=== PATIENT | female | born 1950 | race Caucasian/White ===

== ENCOUNTER 2022-07-04 09:06 | Emergency (ER) | payer OTHER ==
--- OUTSIDE RECORDS SUMMARY | 2022-07-04 09:09 | XMS REPORT | Continuity of Care Document ---
:1950 Author Organization [facility] t Address [address] [place] [address] Care Team Providers Name Role Phone Asked, No Pcp Primary Care Physician Unavailable Kim Dunn Attending Clinician Unavailable Gagandeep Dias MD Attending Clinician Antony Kerr MD Attending Clinician [phone] Payers Payer Name Policy Type Policy Number Effective Date Expiration Date S ource UNIVERSAL C1 [id number] [facility] FIDELITY [facility] MEDICARE NOVITAS MB [id number] 2014 [facility] 00:00:00 [facility] Problems Condition Condition Condition Status Onset Resolution Last Treating Co mments Source Name Details Category Date Date Treatment Clinician Date [id number] Depression Problem Active Co mmon with Spirit anxiety [facility] [id number] Scabies Problem Active Commo n [facility] Allergic Allergic Problem Active Commo n rhinitis rhinitis [facility] Hyperlipid Hyperlipid Problem Active C ommon emia emia [facility] Abnormal Abnormal Problem Active Commo n mammogram mammogram Spir [facility] [id number] Wheezing Problem Active Commo n on Spirit inspiratio - [facility] Hypertensi HTN Problem Active Commo n on (hypertens Spirit ion) [facility] [id number] Acute Problem Active Common bronchitis [facility] , - [facility] unspecifie [facility] Spasm Muscle Problem Active Common spasm of Spirit calf [facility] [id number] Tinea Problem Active Common unguium [facility] [id number] Elevated Problem Active Comm on liver [facility] enzymes [facility] [id number] Renal Problem Active [facility] [id number] Primary Problem Active Commo n osteoarthr [facility] itis - [facility] involving [facility] Allergies, Adverse Reactions, Alerts Allergy Allergy Status Severity Reaction(s) Onset Inactive Treating Comm ents Source Name Type Date Date Clinician 4983 Drug Active Unknown Common allergy [facility] neomycin neomycin Active Unknown Commo n [facility] Penicill Penicill Active Unknown Commo n in in [facility] Social History Social Habit Start Date Stop Date Quantity Comments Source History of Tobacco Common [facility] Use [facility] Sex Assigned At [birth year] [facility] 00:00:00 00:00:00 Smoking Status Start Date Stop Date Source [facility] Former Sm[facility] 2021-07-05 00:00:00 2021-07-05 [facility] Ce nter Never Smoker Common [facility] nter Medications Ordered Filled Start Stop Current Ordering Indication Dosage Frequency Signature Comments Components Source Medication Medication Date Date Medication? Clinician (SIG) Name Name diclofenac 2021- No 75mg Q.5D Take 1 Meth ti (VOLTAREN) 03-04 tablet (75 st 75 MG EC 00:00: 04:59 mg total) Hos lucía tablet 00 :00 by mouth 2 l (two) times a day for 30 days. gabapentin 2021- No 100mg Q.5D Take 1 Met hodi (NEURONTIN) 03-04 10- capsule st 100 mg 00:00: 04:59 (100 mg Hospita capsule 00 :00 total) by l mouth 2 (two) times a day for 30 days. Maxzide Maxzide 2017-06 Yes Na Dunn 1 tablet Common 0-01 in the Spirit 00:00: morning - [facility] Fluoxetine Fluoxetine Yes Na Dunn 1 capsule Common HCl HCl 2-05 in the Spirit 00:00: morning - [facility] 00 [facility] HydrOXYzine HydrOXYzine Yes Na Dunn 1 tablet Common HCl HCl 2-05 as needed Spirit 00:00: - [facility] 00 [facility] hydrOXYzine hydrOXYzine No 1{table TID hydrOXYzin HCl 25 MG HCl 25 MG 2-05 t_as_ne e HCl 25 00:00: eded} MG 00 FLUoxetine FLUoxetine No 1{capsu QD FLUoxetine HCl 20 MG HCl 20 MG 2-05 le_in_t HCl 20 MG 00:00: he_morn 00 ing} hydrOXYzine hydrOXYzine No 1{table TID hydrOXYzin HCl 25 MG HCl 25 MG 2-05 t_as_ne e HCl 25 00:00: eded} MG 00 FLUoxetine FLUoxetine No 1{capsu QD FLUoxetine HCl 20 MG HCl 20 MG 2-05 le_in_t HCl 20 MG 00:00: he_morn 00 ing} Fish Oil Fish Oil No 1{capsu QD Fish Oil 1000 MG 1000 MG le} 1000 MG Niacin 500 Niacin 500 No 1{table QD Niacin 500 MG MG t_with_ MG food} Bumetanide Bumetanide No QD Bumetanide 0.5 0.5 0.5 Centrum Centrum No Centrum Silver - Silver - Silver - Norvasc 5 Norvasc 5 No Norvasc 5 MG MG MG Albuterol Albuterol No 2{puffs QID Albuterol Sulfate 108 Sulfate 108 _as_nee Sulfate (90 Base) (90 Base) ded} 108 (90 MCG/ACT MCG/ACT Base) MCG/ACT FLUoxetine FLUoxetine No 1{capsu QD FLUoxetine HCl 20 HCl 20 le_in_t HCl 20 he_morn ing} Potassium Potassium No Potassium 95 MG 95 MG 95 MG Bumetanide Bumetanide No Bumetanide 0.5 MG 0.5 MG 0.5 MG Claritin 10 Claritin 10 No 1{table QD Claritin MG MG t} 10 MG Aspir-81 81 Aspir-81 81 No 1{table QD Aspir-81 MG MG t} 81 MG amLODIPine amLODIPine No amLODIPine Besylate 5 Besylate 5 Besylate 5 MG MG MG Fish Oil Fish Oil No 1{capsu QD Fish Oil 1000 MG 1000 MG le} 1000 MG Niacin 500 Niacin 500 No 1{table QD Niacin 500 MG MG t_with_ MG food} Bumetanide Bumetanide No QD Bumetanide 0.5 0.5 0.5 Centrum Centrum No Centrum Silver - Silver - Silver - Triamterene Triamterene No QD Triamteren -HCTZ 75-50 -HCTZ 75-50 e-HCTZ MG MG 75-50 MG ZyrTEC ZyrTEC No 1{table QD ZyrTEC Allergy 10 Allergy 10 t} Allergy 10 MG MG MG Probiotic Probiotic No 1{capsu QD Probiotic 250 MG 250 MG le} 250 MG Aspir-81 81 Aspir-81 81 No 1{table QD Aspir-81 MG MG t} 81 MG Norvasc 5 Norvasc 5 No 1{table QD Norvasc 5 MG MG t} MG CoQ-10 100 CoQ-10 100 No 1{capsu QD CoQ-10 100 MG MG le} MG Alive Alive No 1{table QD Alive Multi-Vitam Multi-Vitam t} Multi-Yuly in - in - min - Maxzide Maxzide No 1{table QD Maxzide 75-50 MG 75-50 MG t_in_th 75-50 MG e_morni ng} Curcumin 95 Curcumin 95 No Curcumin 95 Triamterene Triamterene No 1{table QD Triamteren -HCTZ 75-50 -HCTZ 75-50 t_in_th e-HCTZ MG MG e_morni 75-50 MG ng} amLODIPine amLODIPine No 1{table QD amLODIPine Besylate 5 Besylate 5 t} Besylate 5 MG MG MG Vitamin D3 Vitamin D3 No 1{capsu QD Vitamin D3 125 MCG 125 MCG le} 125 MCG (5000 UT) (5000 UT) (5000 UT) Biotin Biotin No 1{table QD Biotin Maximum Maximum t} Maximum 68487 MCG 36341 MCG 09478 MCG Centrum Centrum Yes Na Dunn not Common Silver Silver defined Spirit [facility] Bumetanide Bumetanide Yes Na Dunn as Common directed Spirit [facility] Fish Oil Fish Oil Yes Na Dunn 1 capsule Common Spirit [facility] Fluoxetine Fluoxetine Yes Na Dunn 1 capsule Common HCl HCl in the Spirit morning [facility] Aspir-81 Aspir-81 Yes Na Dunn 1 tablet Common [facility] Norvasc Norvasc Yes Na Dunn 1 tablet Co [facility] Niacin Niacin Yes Na Dunn 1 tablet Comm on with food [facility] Claritin Claritin Yes Na Dunn 1 tablet Common [facility] Potassium Potassium Yes Na Dunn not Co mmon defined [facility] Norvasc Norvasc Yes Na Dunn 1 tablet Co [facility] ZyrTEC ZyrTEC No 1{table QD ZyrTEC Allergy 10 Allergy 10 t} Allergy 10 MG MG MG Probiotic Probiotic No 1{capsu QD Probiotic 250 MG 250 MG le} 250 MG Aspir-81 81 Aspir-81 81 No 1{table QD Aspir-81 MG MG t} 81 MG Norvasc 5 Norvasc 5 No 1{table QD Norvasc 5 MG MG t} MG CoQ-10 100 CoQ-10 100 No 1{capsu QD CoQ-10 100 MG MG le} MG Alive Alive No 1{table QD Alive Multi-Vitam Multi-Vitam t} Multi-Yuly in - in - min - Maxzide Maxzide No 1{table QD Maxzide 75-50 MG 75-50 MG t_in_th 75-50 MG e_morni ng} Curcumin 95 Curcumin 95 No Curcumin 95 Triamterene Triamterene No 1{table QD Triamteren -HCTZ 75-50 -HCTZ 75-50 t_in_th e-HCTZ MG MG e_morni 75-50 MG ng} amLODIPine amLODIPine No 1{table QD amLODIPine Besylate 5 Besylate 5 t} Besylate 5 MG MG MG Vitamin D3 Vitamin D3 No 1{capsu QD Vitamin D3 125 MCG 125 MCG le} 125 MCG (5000 UT) (5000 UT) (5000 UT) Biotin Biotin No 1{table QD Biotin Maximum Maximum t} Maximum 68087 MCG 42201 MCG 02318 MCG Albuterol Albuterol No 2{puffs QID Albuterol Sulfate 108 Sulfate 108 _as_nee Sulfate (90 Base) (90 Base) ded} 108 (90 MCG/ACT MCG/ACT Base) MCG/ACT FLUoxetine FLUoxetine No 1{capsu QD FLUoxetine HCl 20 HCl 20 le_in_t HCl 20 he_morn ing} Potassium Potassium No Potassium 95 MG 95 MG 95 MG Bumetanide Bumetanide No Bumetanide 0.5 MG 0.5 MG 0.5 MG Claritin 10 Claritin 10 No 1{table QD Claritin MG MG t} 10 MG Aspir-81 81 Aspir-81 81 No 1{table QD Aspir-81 MG MG t} 81 MG Maxzide Maxzide No 1{table QD Maxzide 75-50 MG 75-50 MG t_in_th 75-50 MG e_morni ng} Immunizations Ordered Immunization Filled Immunization Date Status Commen ts Source Name Name [facility] 2019-03-15 Completed [facility] 13:56:00 [facility] 2019-03-15 Completed [facility] 13:56:00 [facility] 2019-03-15 Completed [facility] 13:56:00 - [facility] 2019-03-15 Completed [facility] 13:56:00 - [facility] 2019-03-15 Completed [facility] 00:00:00 [facility] Vital Signs Vital Name Observation Time Observation Value Comments Source height 2021-07-05 15:00:00 65.00 [in_i] [facility] weight 2021-07-05 15:00:00 155 [lb_av] [facility] temperature 2021-07-05 15:00:00 97.5 [degF] [facility] bmi 2021-07-05 15:00:00 25.79 kg/m2 [facility] oximetry 2021-07-05 15:00:00 98 % [facility] respiratory rate 2021-07-05 15:00:00 16 /min Comm on [facility] blood pressure 2021-07-05 15:00:00 120 mm[Hg] Common [facility] - systolic [facility] blood pressure 2021-07-05 15:00:00 72 mm[Hg] Common [facility] - diastolic [facility] height 2021-07-05 16:00:00 65.00 [in_i] [facility] weight 2021-07-05 16:00:00 156 [lb_av] [facility] temperature 2021-07-05 16:00:00 97.5 [degF] [facility] bmi 2021-07-05 16:00:00 25.96 kg/m2 [facility] oximetry 2021-07-05 16:00:00 98 % [facility] respiratory rate 2021-07-05 16:00:00 16 /min Comm on [facility] blood pressure 2021-07-05 16:00:00 120 mm[Hg] [facility] systolic [facility] blood pressure 2021-07-05 16:00:00 72 mm[Hg] Common [facility] diastolic [facility] Procedures Procedure Date / Time Performed Performing Clinician [facility] e US VASCULAR SCREENING 2022-07-03 20:51:01 [facility] HEART SCAN PLUS CT HEART SCAN PLUS W 2022-07-03 18:45:51 [facility] PHYSICIAN ORDER XR LUMBAR SPINE 2 OR 3 2022-03-04 15:48:07 Cirilo Antony [facility] Fredrick MRI SPINE EXTERNAL 2022-01-18 16:33:41 [facility] STUDY [facility] Plan of Care Planned Activity Planned Date Details Comments Source Future Scheduled 2022-07-04 Hepatitis C screening [facility] Test 02:27:13 (procedure) [code = [id number]] Future Scheduled 2022-07-04 BREAST CANCER [facility] Test 02:27:13 SCREENING [code = BREAST CANCER SCREENING] Future Scheduled 2022-07-04 COLONOSCOPY SCREENING [facility] Test 02:27:13 [code = COLONOSCOPY SCREENING] Future Scheduled 2022-07-04 SHINGLES VACCINES (1 [facility] Test 02:27:13 of 2) [code = SHINGLES VACCINES (1 of 2)] Future Scheduled 2022-07-04 65+ PNEUMOCOCCAL [facility] Test 02:27:13 VACCINE (1 - PCV) [code = 65+ PNEUMOCOCCAL VACCINE (1 - PCV)] Future Scheduled 2022-07-04 COVID-19 VACCINE (4 - [facility] Test 02:27:13 Booster for Moderna series) [code = COVID-19 VACCINE (4 - Booster for Moderna series)] Encounters Start End Encounter Admission Attending Care Care Encounter Source Date/Time Date/Time Type Type Clinicians Facility Department ID 2021-10-02 Outpatient Dunn, Na [facility] [id number] Common 09:57:01 [facility] 2021-07-10 Outpatient [facility], Na [facility] [id number] 2 Common 12:17:32 [id number] [facility] 2021-07-10 Outpatient [facility], Na [facility] [id number] 2 Common 11:26:31 [id number] [facility] 2021-07-10 Outpatient [facility], Na [facility] [id number] 2 Common 11:22:56 [id number] [facility] 2022-07-03 2022-07-03 [facility], 1.2.840.1 [id number] Methodi 12:25:58 23:59:00 Encounter Gagandeep 75577.1.[address] 3.430.2.7 Hospit a .3.398035 l .8 2022-07-03 2022-07-03 [facility], 1.2.840.1 [id number] Methodi 12:25:40 23:59:00 Encounter Gagandeep 14638.1.[address] 3.430.2.7 Hospit a .3.630046 l .8 2022-07-03 2022-07-03 Travel 1.2.840.1 [id number] [id number] Methodi 00:00:00 00:00:[address] 3.430.2.7 0.2.7.3.698 spita .3.592701 084.8 l .8 2022-07-03 2022-07-03 [facility] [id number] [address] 00:00:00 00:00:00 GAGAN[address] 2022-07-03 2022-07-03 Outpatient LARISSA [facility] [id number] [address] 00:00:00 00:00:00 [address] 2022-06-13 2022-06-13 Transcribe Larissa, 1.2.840.1 [id number] Methodi 00:00:00 00:00:00 Orders Gagandeep 91581.1.[address] 3.430.2.7 Hospit a .3.633447 l .8 2022-03-04 2022-03-04 Hospital Kerr, 1.2.840.1 [id number] Methodi 10:48:40 23:59:00 Encounter Antony 69861.1.1 038 [address] t [facility] 3.430.2.7 [facility]osp [facility] .3.889306 l .8 2022-03-04 2022-03-04 Office Kerr, 1.2.840.1 [id number] Methodi 10:30:00 11:35:13 Visit Antony 90469.1.[address] [facility] 3.430.2.7 [facility]osp [facility] .3.604808 l .8 2022-03-04 2022-03-04 Orders Kerr, 1.2.840.1 [id number] Methodi 00:00:00 00:00:00 Only Antony 94477.1.[address] [facility] 3.430.2.7 [facility]osp [facility] .3.899829 l .8 2022-03-04 2022-03-04 Travel 1.2.840.1 [id number] [id number] Methodi 00:00:00 00:00:[address] 3.430.2.7 0.2.7.3.698 Ho spita .3.296459 084.8 l .8 2022-03-04 2022-03-04 [facility] [id number] [address] 00:00:00 00:00:[address] 2022-03-04 2022-03-04 Outpatient CIRILO, [facility] [id number] [address] 00:00:00 00:00:00 ANTONY [address] 2022-03-04 2022-03-04 Outpatient CIRILO, [facility] [id number] [address] 00:00:00 00:00:00 ANTONY [address] 2022-01-20 2022-01-20 Travel 1.2.840.1 [id number] [id number] Methodi 00:00:00 00:00:[address] 3.430.2.7 0.2.7.3.698 Ho spita .3.517340 084.8 l .8 2021-07-05 2021-07-05 SUB ANNUAL STLMLC STLMLC [id number] Common 00:00:00 00:00:00 MCR [facility] VISIT [facility] 2021-07-05 2021-07-05 OFFICE STLMLC STLMLC [id number] Co mmon 00:00:00 00:00:00 VISIT EST Spir it PT LEVEL 3 [facility] 2021-07-02 2021-07-02 (TEL) STLMLC STLMLC [id number] Co mmon 00:00:00 00:00:00 [facility] 2021-05-15 2021-05-15 (TEL) STLMLC STLMLC [id number] Co mmon 00:00:00 00:00:00 [facility] 2020-06-19 2020-06-19 Outpatient STLMLC STLMLC [id number] Common 00:00:00 00:00:00 [facility] 2020-03-02 2020-03-02 [facility] [id number] Common 14:00:00 14:00:[address] [facility] 2019-11-22 2019-11-22 [facility] [id number] Common 11:00:00 11:00:[address] [facility] 2019-11-03 2019-11-03 [facility] [id number] Common 04:08:00 04:08:[address] [facility] 2019-03-15 2019-03-15 Outpatient [facility] [id number] Common 13:00:00 13:00:[address] [facility] 2018-12-23 2018-12-23 Out[facility] [id number] Common 13:00:00 13:00:[address] [facility] 2018-09-13 2018-09-13 Outpatient [facility] [id number] Common 13:00:00 13:00:[address] [facility] 2018-03-15 2018-03-15 [facility] [id number] Common 14:45:00 14:45:[address] [facility] 2018-02-15 2018-02-15 [facility] [id number] Common 17:32:00 17:32:[address] [facility] 2018-02-03 2018-02-03 Out[facility] [id number] Common 09:29:00 09:29:[address] [facility] 2018-01-22 2018-01-22 Outpatient [facility] [id number] Common 11:04:00 11:04:[address] [facility] Results This patient has no known results.
--- NOTE | 2022-07-04 09:52 | RAD REPORT ---
EXAM DESCRIPTION: RAD - Ankle Left 3 View -07/04/2022 9:35 am CLINICAL HISTORY: Left ankle pain status post injury FINDINGS: No fracture or dislocation is seen. Moderate calcaneal spurs
--- NOTE | 2022-07-04 09:53 | RAD REPORT ---
EXAM DESCRIPTION: RAD - Foot Left 3 View - 07/04/2022 9:35 am CLINICAL HISTORY: Left Foot pain FINDINGS: No fracture or dislocation is seen.
--- NOTE | 2022-07-04 10:04 | ER ---
Nurse's Notes [facility] Name: Deja Santizo Age: 72 yrs Sex: Female : 1950 Arrival Date: 07/04/2022 Time: 09:08 Bed 14 Private MD: Gagandeep Dias V Diagnosis: Sprain of ankle Presentation: 07/04 09:17 Chief complaint: Patient states: left foot/ankle injury, stepped off steps wrong and jh5 fell down 4 steps. Coronavirus screen: Vaccine status: Patient reports receiving the 2nd dose of the covid vaccine. Client denies travel out of the [place] in the last 14 days. Ebola Screen: Patient negative for fever greater than or equal to 101.5 degrees Fahrenheit, and additional compatible Ebola Virus Disease symptoms Patient denies exposure to infectious person. Patient denies travel to an Ebola-affected area in the 21 days before illness onset. Initial Sepsis Screen: Does the patient meet any 2 criteria? No. Patient's initial sepsis screen is negative. Does the patient have a suspected source of infection? No. Patient's initial sepsis screen is negative. Risk Assessment: Do you want to hurt yourself or someone else? Patient reports no desire to harm self or others. Onset of symptoms was July 03, 2022. 09:17 Method Of Arrival: Ambulatory [facility] 09:17 Acuity: JADEN 3 jh5 Triage Assessment: 09:21 General: Appears in no apparent distress. slender, well groomed, well developed, [facility] Behavior is calm, cooperative, appropriate for age. Pain: Complains of pain in left foot. Musculoskeletal: Circulation, motion, and sensation intact. Capillary refill < 3 seconds, Range of motion: intact in left ankle. 09:23 Injury Description: rolled ankle falling down steps. [facility] Historical: - Allergies: 09:21 PENICILLINS; 5 - Immunization history:: Adult Immunizations up to date. - Social history:: Smoking status: Patient denies any tobacco usage or history of. Screenin:23 [facility] ED Fall Risk Assessment (Adult) History of falling in the last 3 months, [facility] including since admission No falls in past 3 months (0 pts). Abuse screen: Denies threats or abuse. Denies injuries from another. Nutritional screening: No deficits noted. Tuberculosis screening: No symptoms or risk factors identified. Vital Signs: 09:17 BP 122 / 85; Pulse 67; Resp 18; Temp 98.6(O); Pulse Ox 99% on R/A; Weight 70.31 kg; jh5 Height 5 ft. 6 in. (167.64 cm); Pain 6/10; 09:17 Body Mass Index 25.02 (70.31 kg, 167.64 cm) [facility] ED Course: 09:08 Patient arrived in ED. am2 09:09 Gagandeep Dias MD is Private Physician. as 09:09 [facility]ivas [facility] 09:09 Vamsi Landa DO is Attending Physician. [facility] 09:10 Abi Wilson, RN is Primary Nurse. [facility] 09:21 Triage completed. 5 09:21 Arm band placed on right wrist. jh5 09:23 Patient has correct armband on for positive identification. Call light in reach. Side [facility] rails up X 1. 09:23 No provider procedures requiring assistance completed. 5 09:37 Foot Left 3 View XRAY In Process Unspecified. EDMS 09:37 Ankle Left 3 View XRAY In Process Unspecified. EDMS 11:23 Patient did not have IV access during this emergency room visit. [facility] Administered Medications: No medications were administered Medication: 09:26 VIS not applicable for this client. [facility] Outcome: 10:03 Discharge ordered by . [facility] 11:20 Discharged to home ambulatory. [facility] 11:20 Condition: good 11:20 Discharge instructions given to patient, Instructed on discharge instructions, follow up and referral plans. medication usage, safety practices, Demonstrated understanding of instructions, follow-up care, medications, Prescriptions given X 2. 11:23 Patient left the ED. [facility] Signatures: Dispatcher [employer] EDMS Mark Rivas PA PA Pham Santana Amanda am2 Abi Wilson, RN RN [facility]
--- NOTE | 2022-07-04 10:04 | EDPHYS ---
Physician Documentation [facility] Name: Deja Santizo Age: 72 yrs Sex: Female : 1950 Arrival Date: 07/04/2022 Time: 09:08 Bed 14 Private MD: Gagandeep Dias V ED Physician Vamsi Landa HPI: 07/04 09:16 This 72 yrs old Female presents to ER via Ambulatory with complaints of Foot Injury. jmm 09:16 The patient presents with an injury, pain. Onset: The symptoms/episode began/occurred jmm acutely. Modifying factors: The symptoms are alleviated by nothing. the symptoms are aggravated by nothing. This is a 72 year old female that presents to the ED with complaints of left ankle and foot pain after tripping down 4 steps. Denies hitting her head. Patient states she applied ice last night. Continues to have pain today. . Historical: - Allergies: 09:21 PENICILLINS; jh5 - Immunization history:: Adult Immunizations up to date. - Social history:: Smoking status: Patient denies any tobacco usage or history of. ROS: 09:16 Constitutional: Negative for fever, chills, and weight loss, Cardiovascular: Negative jmm for chest pain, palpitations, and edema, Respiratory: Negative for shortness of breath, cough, wheezing, and pleuritic chest pain. 09:16 MS/extremity: Positive for injury or acute deformity, pain. 09:16 All other systems are negative. Exam: 09:16 Constitutional: This is a well developed, well nourished patient who is awake, alert, jmm and in no acute distress. Head/Face: atraumatic. Eyes: EOMI, no conjunctival erythema appreciated ENT: Moist Mucus Membranes Neck: Trachea midline, Supple Chest/axilla: Normal chest wall appearance and motion. Cardiovascular: Regular rate and rhythm. No edema appreciated Respiratory: Normal respirations, no respiratory distress appreciated Abdomen/GI: Non distended Back: Normal ROM Skin: General appearance color normal 09:16 Musculoskeletal/extremity: pain on palpation of the base of the left 5th metatarsal, compartments are soft, NVI. 09:16 Skin: Appearance: Color: normal in color. 09:16 Neuro: Orientation: is normal, Mentation: is normal, Memory: is normal. 09:16 Psych: Behavior/mood is pleasant, cooperative. Vital Signs: 09:17 BP 122 / 85; Pulse 67; Resp 18; Temp 98.6(O); Pulse Ox 99% on R/A; Weight 70.31 kg; 5 Height 5 ft. 6 in. (167.64 cm); Pain 6/10; 09:17 Body Mass Index 25.02 (70.31 kg, 167.64 cm) [facility] MDM: 09:16 Patient medically screened. [facility] 09:56 Data reviewed: vital signs, nurses notes. Test considered but Not performed:. [facility] Counseling: I had a detailed discussion with the patient and/or guardian regarding: the historical points, exam findings, and any diagnostic results supporting the discharge/admit diagnosis, radiology results, the need for outpatient follow up, to return to the emergency department if symptoms worsen or persist or if there are any questions or concerns that arise at home. 07/04 09:18 Order name: Foot Left 3 View XRAY; Complete Time: 09:55 [facility] 07/04 09:18 Order name: Ankle Left 3 View XRAY; Complete Time: 09:55 [facility] 07/04 09:56 Order name: Yann wrap-joint; Complete Time: 11:20 [facility] Administered Medications: No medications were administered Disposition: 16:54 Co-signature as Attending Physician, Vamsi Landa DO I reviewed the patient's care ms3 provided by the Advanced Practice Provider and agree with the diagnosis and treatment plan. Disposition Summary: 07/04/22 10:03 Discharge Ordered Location: Home [facility] Condition: Stable [facility] Diagnosis - Sprain of ankle [facility] Followup: [facility] - With: Private Physician - When: 2 - 3 days - Reason: Recheck today's complaints, Continuance of care, Re-evaluation by your physician Discharge Instructions: - Discharge Summary Sheet [facility] - Ankle Sprain [facility] Forms: - Medication Reconciliation Form [facility] - Thank You Letter [facility] - Antibiotic Education [facility] - Prescription Opioid Use [facility] Prescriptions: - Voltaren Arthritis Pain 1 % Topical gel - apply 2 gram by TOPICAL route 4 times per day; 1 tube; Refills: 0, Product [facility] Selection Permitted - orphenadrine citrate 100 mg Oral Tablet Sustained Release - take 1 tablet by ORAL route 2 times per day As needed; 20 tablet; Refills: 0, [facility] Product Selection Permitted Signatures: Dispatcher [employer] Mark Valdez PA PA jmm Sims, Marcus, DO DO ms3 Abi Wilson RN RN jh5
[2022-07-04 11:28] VITALS: BP 122/85; TEMP 98.6; O2SAT 99
== END 2022-07-04 11:23 | disposition home or self-care (01) ==
LOC: ER 09:06
DX: S93.402A Sprain of unspecified ligament of left ankle, initial encounter (principal); Z88.0 Allergy status to penicillin
CPT/HCPCS: 99283